=== PATIENT | female | born 1960 | race Caucasian/White ===

== ENCOUNTER 2024-10-24 13:14 | Outpatient (CLI) | payer MEDICARE, SELFPAY | END 2024-10-24 13:15 | disposition home or self-care (01) | PROVIDERS: PCP Nurse Practitioner Family; Visit Provider Nurse Practitioner Family | DX: I25.10 Atherosclerotic heart disease of native coronary artery without angina pectoris (principal); E78.2 Mixed hyperlipidemia; F17.219 Nicotine dependence, cigarettes, with unspecified nicotine-induced disorders | CPT/HCPCS: 80053; 80061; 85025 ==

== ENCOUNTER 2024-11-15 12:58 | Outpatient (CLI) | payer MEDICARE, SELFPAY ==
[2024-11-15] MEDS: PERFLUTREN LIPID MICROSPHERES 2 ML VIAL IVP (13:57)
--- NOTE | 2024-11-15 14:00 | CRLHL7_ITS ---
For Patients: As a result of the Century Cures Act, medical imaging exams and procedure reports are released immediately into your electronic medical record. You may view this report before your referring provider. If you have questions, please contact your health care provider. INDICATION: Lung cancer screening. History of smoking. High risk patient with greater than 45 pack-year smoking history. TECHNIQUE: Low-dose lung cancer screening non-contrast CT chest. Dose reduction techniques were used. COMPARISON: None. FINDINGS: NODULES: 1.3 cm nodule left upper lobe. 5 millimeter nodule right upper lobe. LUNGS AND PLEURA: Emphysema. MEDIASTINUM: Mildly prominent mediastinal lymph nodes are present measuring up to 1.1 cm. There is a left breast mass measuring 4.9 cm. CORONARY ARTERY CALCIFICATION: Mild. LIMITED UPPER ABDOMEN: Gallbladder is absent. MUSCULOSKELETAL: Multilevel degenerative disc disease. No vertebral body compression fracture. IMPRESSION: Suspicious 1.3 cm left upper lobe nodule. Suspicious left breast mass measuring 4.9 cm. LUNG-RADS CATEGORY: 4X: Suspicious. RADIOLOGIST RECOMMENDATION: PET/CT. Diagnostic bilateral mammography and left breast ultrasound. Please note that all CT scans at this facility use dose modulation, iterative reconstruction, and/or weight-based dosing when appropriate to reduce radiation dose to as low as reasonably achievable. Dictated by Jair Davis MD @ 11/15/2024 3:00:44 PM (Electronically Signed)
--- NOTE | 2024-11-15 14:30 | CRLHL7_ITS ---
For Patients: As a result of the Century Cures Act, medical imaging exams and procedure reports are released immediately into your electronic medical record. You may view this report before your referring provider. If you have questions, please contact your health care provider. DEXA BONE SCAN Current height (in): 64. Weight (lb): 300. Menopause age: 54. Ethnicity: White. 1. Have you had a previous hip or vertebral fracture? No. 2. Have you had any fractures during your adult life which did not result from significant trauma (e.g., auto accident)? No. 3. Did either of your parents have a hip fracture? No. 4. Do you smoke? Yes. 5. Have you ever taken Glucocorticoids? No. 6. Do you have rheumatoid arthritis? Yes. 7. Do you have secondary osteoporosis? No. 8. Do you drink 3 or more alcoholic drinks per day? No. 9. Are you being treated for osteoporosis? No. 10. Have you ever taken any of the following medications: Actonel, Evista, Fosamax, Miacalcin, Reclast, Boniva, Forteo, HRT (i.e. estrogen/hormone therapy), Protelos, Prolia, Vitamin D, Calcium, other ??? please specify. ANSWER: No. 11. Do you have any of the following medical conditions: Anorexia or bulimia, asthma or emphysema, end stage renal disease, hyperparathyroidism, any seizure disorders, cancer, inflammatory bowel diseases, hysterectomy, other ??? please specify. ANSWER: Yes, Breast Cancer. 12. What was your maximum height (inches)? 66. 13. Do you perform weight bearing exercise regularly? Yes. 14. Do you regularly consume dairy products? Yes. 15. Do you drink caffeinated beverages? Yes. 16. At what age did your period start? 8. 17. Are you premenopausal? No. 18. How many full term pregnancies have you had? 3. 19. Have you ever missed your period for more than 6 months in a row (not including or menopause)? No. TECHNIQUE: Bone mineral density study was performed using the [employer]. FINDINGS: The results of the study expressed as bone mineral density (BMD) are as follows: Lumbar spine L1 to L4: BMD: 0.815 g/cm2. T-score: -2.1. Z-score: -0.3. Neck Left: BMD: 0.756 g/cm2. T-score: -0.8. Z-score: 0.7. Right: BMD: 0.833 g/cm2. T-score: -0.1. Z-score: 1.4. Total Left: BMD: 0.938 g/cm2. T-score: -0.0. Z-score: 1.2. Right: BMD: 0.947 g/cm2. T-score: 0.0. Z-score: 1.3. IMPRESSION: Osteopenia. FRAX 10-year Fracture Risk Major Osteoporotic Fracture: 8.1 percent Hip Fracture: 0.8 percent Reported Risk Factors: Smoking and Rheumatoid Arthritis. [place] () Neck BMD=0.756, BMI=47.3. Jair Davis M.D. Diagnostic Radiologist [email or web address] DW/Dictated by: Jair Davis MD @ 11/16/2024 10:30:00 AM (Electronically Signed)
== END 2024-11-15 12:59 | disposition home or self-care (01) ==
LOC: RAD 12:59
PROVIDERS: PCP Nurse Practitioner Family; Visit Provider Nurse Practitioner Family
DX: Z12.2 Encounter for screening for malignant neoplasm of respiratory organs (principal); F17.219 Nicotine dependence, cigarettes, with unspecified nicotine-induced disorders; R91.8 Other nonspecific abnormal finding of lung field; R60.0 Localized edema; I25.10 Atherosclerotic heart disease of native coronary artery without angina pectoris; I34.0 Nonrheumatic mitral (valve) insufficiency; I07.1 Rheumatic tricuspid insufficiency; Z13.820 Encounter for screening for osteoporosis; M85.89 Other specified disorders of bone density and structure, multiple sites
CPT/HCPCS: 71271; 77080; 93306; Q9957